=== PATIENT | female | born 1955 | race Caucasian/White ===

== ENCOUNTER 2018-11-16 11:43 | Emergency (ER) | payer MEDICARE ==
[2018-11-16 12:03] LABS: BASOPHILS % (AUTO) 1.3 % (0.0-5.0); EOSINOPHILS % (AUTO) 10.8 % (0.0-8.0); HEMATOCRIT 38.4 % (36-48); LYMPHOCYTES % (AUTO) 32.8 % (21.0-51.0); MEAN CORPUSCULAR HEMOGLOBIN 29.7 pg (27.0-33.0); MEAN CORPUSCULAR HGB CONC 33.7 g/dL (32.0-36.0); MEAN CORPUSCULAR VOLUME 88.1 fL (79-99); MONOCYTES % (AUTO) 6.8 % (3.0-13.0); NEUTROPHILS % (AUTO) 48.3 % (40.0-77.0); PLATELET COUNT (AUTO) 214 K/uL (130-400); RED BLOOD CELL COUNT(AUTO) 4.36 MIL/uL (4.00-5.50); RED CELL DISTRIBUTION WIDTH 13.4 % (11.0-15.5); WHITE BLOOD COUNT (AUTO) 9.6 K/uL (4.8-10.8)
[2018-11-16 12:09] LABS: APPEARANCE,URINE SL CLOUDY (CLEAR); BILIRUBIN,URINE NEGATIVE (NEGATIVE); COLOR,URINE YELLOW (YELLOW); GLUCOSE, URINE (UA) NEGATIVE (NEGATIVE); KETONES,URINE 5 mg/dL (NEGATIVE); LEUKOCYTE ESTERASE ,URINE NEGATIVE (NEGATIVE); NITRATE,URINE NEGATIVE (NEGATIVE); OCCULT BLOOD,URINE NEGATIVE (NEGATIVE); PH,URINE 5.5 (5.0-8.0); PROTEIN,URINE NEGATIVE (NEGATIVE); UROBILINOGEN,URINE 0.2 mg/dL (0.2-1.0)
[2018-11-16 12:10] LABS: POTASSIUM 4.6 mmol/L (3.5-5.1)
[2018-11-16 12:13] LABS: INR 0.9 (0.85-1.15); PARTIAL THROMBOPLASTIN TIME 28.5 SEC (26.3-35.5); PROTHROMBIN TIME 9.5 SEC (9.6-11.6)
[2018-11-16 12:21] LABS: ALBUMIN 3.3 g/dL (3.5-5.0); BILIRUBIN,TOTAL 0.2 mg/dL (0.2-1.0); TOTAL PROTEIN, SERUM 7.2 g/dL (6.0-8.3)
[2018-11-16 12:28] LABS: BACTERIA,URINE Moderate /HPF (None Seen); RBC,URINE None Seen /HPF (0-1); WBC,URINE 0-1 /HPF (0-1)
[2018-11-16] MEDS ORDERED: ASPIRIN 325 MG TABLET ONE (12:39)
[2018-11-16] MEDS ORDERED: METHYLPREDNISOLONE SOD SUCC 125MG/2ML VIAL ONE (12:39)
[2018-11-16] MEDS ORDERED: IPRATROPIUM/ALBUTEROL SULFATE 3 ML SOLUTION IH ONE (12:41)
[2018-11-16 12:54] LABS: B-TYPE NATRIURETIC PEPTIDE 34 pg/mL (0-100)
== END 2018-11-16 15:18 | disposition home or self-care (01) ==
LOC: EDH 11:43
DX: J44.1 Chronic obstructive pulmonary disease with (acute) exacerbation (principal); E11.9 Type 2 diabetes mellitus without complications; I10 Essential (primary) hypertension; E78.00 Pure hypercholesterolemia, unspecified; Z90.710 Acquired absence of both cervix and uterus; Z90.49 Acquired absence of other specified parts of digestive tract; Z88.0 Allergy status to penicillin; Z91.011 Allergy to milk products; Z87.891 Personal history of nicotine dependence
CPT/HCPCS: 36415; 71045; 80053; 81001; 82550; 83880; 84484; 85025; 85610; 85730; 93005; 94640; 96374; 99285; J2930

== ENCOUNTER → 2019-01-05 | Outpatient (CLI) | payer MEDICARE ==
[~2019-01-05] VITALS: Ht 170.2 cm; Wt 122.5 kg
[~2019-01-05] MED LIST: REGADENOSON 0.4 MG/5 ML PF SYG IVP SCH
== END | disposition home or self-care (01) ==
LOC: SHCH 08:12
PROVIDERS: ATTEND Internal Medicine Cardiovascular Disease
DX: I25.89 Other forms of chronic ischemic heart disease (principal); I25.10 Atherosclerotic heart disease of native coronary artery without angina pectoris; I20.9 Angina pectoris, unspecified
CPT/HCPCS: 78452; 93017; 96374; A9500 ×2; J2785

== ENCOUNTER → 2019-01-12 | Outpatient (CLI) | payer MEDICARE | END | disposition home or self-care (01) | LOC: RAH 14:15 | PROVIDERS: ATTEND Family Medicine | DX: S69.82XA Other specified injuries of left wrist, hand and finger(s), initial encounter (principal); S59.802A Other specified injuries of left elbow, initial encounter; M19.032 Primary osteoarthritis, left wrist; M19.042 Primary osteoarthritis, left hand; M79.89 Other specified soft tissue disorders; X58.XXXA Exposure to other specified factors, initial encounter; Y93.89 Activity, other specified; Y92.89 Other specified places as the place of occurrence of the external cause; Y99.8 Other external cause status | CPT/HCPCS: 73080; 73110; 73130 ==

== ENCOUNTER → 2019-01-20 | Outpatient (CLI) | payer MEDICARE | END | disposition home or self-care (01) | LOC: SHCH 14:15 | PROVIDERS: ATTEND Internal Medicine Cardiovascular Disease | DX: I08.0 Rheumatic disorders of both mitral and aortic valves (principal); I31.3 Pericardial effusion (noninflammatory) | CPT/HCPCS: 93306 ==

== ENCOUNTER 2019-03-03 06:07 | Day surgery (SDC) | payer MEDICARE ==
[2019-03-01 15:54] LABS: APPEARANCE,URINE Cloudy (CLEAR); BILIRUBIN,URINE Negative (NEGATIVE); COLOR,URINE Yellow (YELLOW); GLUCOSE, URINE (UA) >=1000 mg/dL (NEGATIVE); KETONES,URINE Negative (NEGATIVE); LEUKOCYTE ESTERASE ,URINE Small (NEGATIVE); NITRATE,URINE Positive (NEGATIVE); OCCULT BLOOD,URINE Negative (NEGATIVE); PH,URINE 5.5 (5.0-8.0); PROTEIN,URINE Negative (NEGATIVE)
[2019-03-01 15:58] LABS: BASOPHILS % (AUTO) 0.9 % (0.0-5.0); EOSINOPHILS % (AUTO) 4.4 % (0.0-8.0); HEMATOCRIT 40.1 % (36-48); LYMPHOCYTES % (AUTO) 31.9 % (21.0-51.0); MEAN CORPUSCULAR HEMOGLOBIN 30.1 pg (27.0-33.0); MEAN CORPUSCULAR HGB CONC 33.5 g/dL (32.0-36.0); MEAN CORPUSCULAR VOLUME 89.9 fL (79-99); MONOCYTES % (AUTO) 6.4 % (3.0-13.0); NEUTROPHILS % (AUTO) 56.4 % (40.0-77.0); PLATELET COUNT (AUTO) 218 K/uL (130-400); RED BLOOD CELL COUNT(AUTO) 4.47 MIL/uL (4.00-5.50); RED CELL DISTRIBUTION WIDTH 13.9 % (11.0-15.5); WHITE BLOOD COUNT (AUTO) 9.7 K/uL (4.8-10.8)
[2019-03-01 16:10] LABS: CREATININE 1.4 mg/dL (0.5-1.5); POTASSIUM 4.6 mmol/L (3.5-5.1)
[2019-03-01 16:30] LABS: INR 0.96 (0.85-1.15); PROTHROMBIN TIME 9.9 SEC (9.6-11.6)
[2019-03-01 17:05] VITALS: BP 139/64
[2019-03-01 17:15] LABS: BACTERIA,URINE Moderate /HPF (None Seen); RBC,URINE 0-1 /HPF (0-1)
[2019-03-01 17:16] LABS: SQUAMOUS EPITHELIAL CELL,UR Moderate /HPF (0-2)
--- NOTE | 2019-03-02 14:17 | NUR ---
RE:URINALYSIS INFORMED LESLYE DUPONT REGARDING POSITIVE URINALYSIS (NITRATES). NO NEW ORDERS RECEIVED, OK TO PROCEED WITH SCHEDULED PROCEDURE.
[2019-03-03] VITALS (21 sets, daily range): BP systolic 95–132; BP diastolic 35–67
[~2019-03-03] VITALS: Ht 172.7 cm; Wt 119.1 kg
[~2019-03-03 06:07] MED LIST changes: +ASPI-1005 PO; +BLAC540C4 PO; +BUDE10.2 IH; +CITA20TA17 PO; +DIAZ10TA4 PO; +ESTR1TAB17 PO; +GLIP5TAB11 PO; +INSU100C6 SQ; +INSU100V12 SQ; +LISI-613 PO; +MAGN400C PO; +METF-446 PO; +NITR0.4T50 SL; -REGADENOSON 0.4 MG/5 ML PF SYG IVP SCH; +SIMV20TA6 PO; +SODIUM CHLORIDE 0.9% 500ML 500 ML IV SCH; +THEO400T3 PO; +TIOT18CA3 IH; +TIZA4TAB5 PO; +TRAM50TA4 PO; +VITAMIN D2 PO
[2019-03-03] MEDS ORDERED: SODIUM CHLORIDE 0.9% 1000ML 1,000 ML IV ONE (06:10)
--- NOTE | 2019-03-03 07:15 | NUR ---
TO DIRECTORY COMPILER PT TRANSFERRED TO DIRECTORY COMPILER VIA BED BY LISY HENDERSON. PT CHRISTA.
[2019-03-03] MEDS ORDERED: NITROGLYCERIN 5 MG/ML 10 ML VIAL IV ONE (07:25)
[2019-03-03] MEDS ORDERED: IOHEXOL 350 MG/ML 100ML INFUS..BTL IV ONE (07:25)
[2019-03-03] MEDS ORDERED: LIDOCAINE HCL 2% 20ML ONE ×2 (07:25→07:41)
[2019-03-03] MEDS ORDERED: IOHEXOL-350 50ML VIAL IV ONE (07:25)
[2019-03-03] MEDS ORDERED: HEPARIN SODIUM 1000UNIT/ML 10ML VIAL ONE (07:25)
[2019-03-03] MEDS ORDERED: MIDAZOLAM HCL 1 MG/ML 2ML VIAL ONE ×2 (07:25→07:43)
[2019-03-03] MEDS ORDERED: ADENOSINE 90MG/30ML VIAL IV ONE ×2 (07:59→08:02)
[2019-03-03] MEDS ORDERED: ATROPINE SULFATE 0.1 MG/ML 10 ML SYG IVP ONE (08:34)
[2019-03-03] MEDS ORDERED: NITROGLYCERIN 4.1 GM SPRAY TL ONE (08:38)
[2019-03-03] MEDS ORDERED: DEXTROSE 50%-WATER 50 ML DISP.SYRIN IV PRN (08:45)
[2019-03-03] MEDS ORDERED: GLUCAGON 1MG KIT 1 MG ML IM PRN (08:45)
[2019-03-03] MEDS ORDERED: INSULIN HUMULIN R 100 UNIT/ML 3ML ONE (11:14)
[2019-03-03] MEDS ORDERED: INSULIN HUMULIN R 100 UNIT/ML 3ML SQ SCH (11:30)
--- NOTE | 2019-03-03 11:39 | NUR ---
DIET PT TOLERATING DIET WELL, FAMILY ASSISTING PT.
--- NOTE | 2019-03-03 14:00 | NUR ---
DISCHARGE PT MEET CRITERIA FOR DISCHARGE, WAITING FOR RIDE HOME. DISCHARGE INSTRUCTIONS GIVEN TO DAUGHTER, ALSO DEMONSTRATED ON HOW TO MONITOR CATH SITE FOR BLEEDING, HEMATOMA. VERBALIZED UNDERSTANDING. CATH SITE REMAINS SOFT, DRESSING DRY AND INTACT, NO OOZING NO HEMATOMA NOTED.
--- NOTE | 2019-03-03 16:00 | NUR ---
DISCHARGE PT'S RIDE HERE. PT DISCHARGED VIA WHEELCHAIR WITH DAUGHTER AND OTHER FAMILY MEMBERS. PT STABLE. CATH SITE TO RIGHT GROIN REMAINS SOFT, DRESSING DRY AND INTACT, NO OOZING NO HEMATOMA NOTED.
== END 2019-03-03 16:00 | disposition home or self-care (01) ==
LOC: DAH 06:07
PROVIDERS: ATTEND Internal Medicine Cardiovascular Disease
DX: I25.118 Atherosclerotic heart disease of native coronary artery with other forms of angina pectoris (principal); R94.39 Abnormal result of other cardiovascular function study; E11.9 Type 2 diabetes mellitus without complications; I10 Essential (primary) hypertension; I25.10 Atherosclerotic heart disease of native coronary artery without angina pectoris; Z88.1 Allergy status to other antibiotic agents; Z88.5 Allergy status to narcotic agent; Z88.8 Allergy status to other drugs, medicaments and biological substances; Z88.0 Allergy status to penicillin; Z79.84 Long term (current) use of oral hypoglycemic drugs; Z79.899 Other long term (current) drug therapy; Z98.890 Other specified postprocedural states; Z87.891 Personal history of nicotine dependence; Z90.710 Acquired absence of both cervix and uterus; Z90.49 Acquired absence of other specified parts of digestive tract; Z95.5 Presence of coronary angioplasty implant and graft; Z79.4 Long term (current) use of insulin; Z79.01 Long term (current) use of anticoagulants; Z72.89 Other problems related to lifestyle; Z82.5 Family history of asthma and other chronic lower respiratory diseases; Z82.49 Family history of ischemic heart disease and other diseases of the circulatory system
CPT/HCPCS: 36415; 71045; 80048; 81001; 82948 ×3; 85025; 85610; 85730; 93005; 93458; 93571; 96360; A4215; A4216; A4221; A4222; A4223 ×3; A4606; A4663; C1769; C1887; C1894; J0153 ×2; J1644 ×2; J1815; J2250 ×2; J3490 ×3; J7030; Q9965; Q9967 ×2; 99156; 99157; J0461

== ENCOUNTER 2019-10-01 23:56 | Observation (INO) | payer MEDICARE ==
[~2019-10-01] VITALS: Ht 170.2 cm; Wt 120.7 kg
[~2019-10-01 23:56] MED LIST changes: +SIMV-43 PO; -SIMV20TA6 PO; -SODIUM CHLORIDE 0.9% 500ML 500 ML IV SCH
[2019-10-02] MEDS ORDERED: NITROGLYCERIN 1GM/1 INCH PACKET TD ONE (00:23)
[2019-10-02 00:27] LABS: BASOPHILS % (AUTO) 0.4 % (0.0-5.0); EOSINOPHILS % (AUTO) 5.7 % (0.0-8.0); LYMPHOCYTES % (AUTO) 44.6 % (21.0-51.0); MEAN CORPUSCULAR HEMOGLOBIN 29.1 pg (27.0-33.0); MEAN CORPUSCULAR HGB CONC 32.7 g/dL (32.0-36.0); MONOCYTES % (AUTO) 6.4 % (3.0-13.0); NEUTROPHILS % (AUTO) 41.1 % (40.0-77.0); PLATELET COUNT (AUTO) 219 K/uL (130-400); RED BLOOD CELL COUNT(AUTO) 3.37 MIL/uL (4.00-5.50); RED CELL DISTRIBUTION WIDTH 13.3 % (11.0-15.5); WHITE BLOOD COUNT (AUTO) 9.9 K/uL (4.8-10.8)
[2019-10-02 00:33] LABS: CREATININE 1.3 mg/dL (0.5-1.5); POTASSIUM 4.4 mmol/L (3.5-5.1)
[2019-10-02 00:36] LABS: INR 0.92 (0.85-1.15); PARTIAL THROMBOPLASTIN TIME 27.3 SEC (26.3-35.5)
[2019-10-02 00:37] LABS: ALBUMIN 3.1 g/dL (3.5-5.0); BILIRUBIN,TOTAL 0.2 mg/dL (0.2-1.0); TOTAL PROTEIN, SERUM 6.7 g/dL (6.0-8.3)
[2019-10-02 00:48] LABS: B-TYPE NATRIURETIC PEPTIDE 42 pg/mL (0-100)
[2019-10-02] MEDS ORDERED: NITROGLYCERIN 0.4 MG SL TAB SL PRN (03:30)
[2019-10-02] MEDS ORDERED: TRAMADOL HCL 50 MG TABLET PO PRN (03:30)
[2019-10-02] MEDS ORDERED: ONDANSETRON HCL 4 MG/2 ML VIAL IV PRN (03:30)
[2019-10-02] MEDS ORDERED: HYDRALAZINE HCL 20 MG/ML VIAL IV PRN (03:30)
[2019-10-02] MEDS ORDERED: ACETAMINOPHEN 325 MG TAB PO PRN ×2 (03:30)
[2019-10-02 03:50] LABS: HEMOGLOBIN A1C 8.3 % (4.0-6.0)
[2019-10-02 03:51] LABS: % IRON SATURATION 12.7 % (22-44)
[2019-10-02 05:00] LABS: CHOLESTEROL 143 mg/dL (<200); HDL CHOLESTEROL 91 mg/dL (35-85); LDL DIRECT 77 mg/dL (0-99); TRIGLYCERIDES 194 mg/dL (30-200)
[2019-10-02] MEDS: FAMOTIDINE/PF 20 MG/2 ML VIAL IV SCH ×2 (09:00→21:35)
[2019-10-02] MEDS: METOPROLOL TARTRATE 50 MG TAB PO SCH (09:00)
[2019-10-02] MEDS: ASPIRIN 81MG TAB.CHEW PO SCH (09:00)
[2019-10-02] MEDS: ENOXAPARIN SODIUM 30 MG/0.3 ML SQ SCH (09:00)
[2019-10-02] MEDS ORDERED: ENOXAPARIN SODIUM 30 MG/0.3 ML SQ ONE (09:01)
[2019-10-02] MEDS ORDERED: ASPIRIN 81MG TAB.CHEW ONE (09:01)
[2019-10-02] MEDS ORDERED: FAMOTIDINE/PF 20 MG/2 ML VIAL IV ONE (09:02)
[2019-10-02] MEDS ORDERED: IPRATROPIUM/ALBUTEROL SULFATE 3 ML SOLUTION IH PRN (10:45)
[2019-10-02] MEDS ORDERED: MAGNESIUM OXIDE 400 MG TABLET PO SCH (10:45)
[2019-10-02] MEDS ORDERED: SUB TO IPRATROPIUM 0.5MG/2.5ML PER P&T IH SCH (10:45)
[2019-10-02] MEDS ORDERED: DIAZEPAM 5 MG TABLET PO PRN (10:45)
[2019-10-02] MEDS: PANTOPRAZOLE SODIUM 40 MG TABLET.DR PO SCH (10:53)
[2019-10-02] MEDS ORDERED: LISINOPRIL 5 MG TABLET ONE (11:18)
[2019-10-02] MEDS ORDERED: ISOSORBIDE MONO 30MG TAB SR PO ONE (11:18)
[2019-10-02] MEDS ORDERED: METOPROLOL TARTRATE 50 MG TAB ONE (11:19)
[2019-10-02] MEDS ORDERED: INSULIN HUMULIN R 100 UNIT/ML 3ML ONE (11:20)
[2019-10-02] MEDS ORDERED: MAGNESIUM OXIDE 400 MG TABLET PO ONE (11:28)
[2019-10-02] MEDS: LISINOPRIL 20 MG TABLET PO SCH (11:30)
[2019-10-02] MEDS: INSULIN HUMULIN R 100 UNIT/ML 3ML SQ SCH ×3 (11:30→21:49)
[2019-10-02] MEDS ORDERED: IPRATROPIUM/ALBUTEROL SULFATE 3 ML SOLUTION IH ONE (11:51)
[2019-10-02] MEDS: IPRATROPIUM/ALBUTEROL SULFATE 3 ML SOLUTION IH SCH ×3 (12:01→23:05)
[2019-10-02 16:00] VITALS: BP 128/75
[2019-10-02] MEDS: ISOSORBIDE MONO 30MG TAB SR PO SCH (16:00)
[2019-10-02] MEDS: METFORMIN HCL 500 MG TABLET PO SCH (17:25)
[2019-10-02] MEDS: BUDESONIDE 0.5 MG/2 ML INH IH SCH (18:16)
[2019-10-02 20:57] VITALS: BP 119/53
[2019-10-02] MEDS ORDERED: ATORVASTATIN CALCIUM 10 MG TABLET PO SCH (21:00)
[2019-10-02] MEDS ORDERED: SUB PER P&T FOR ASTHMA OR COPD RECOMMENDATION IH SCH (21:00)
[2019-10-02] MEDS ORDERED: THEOPHYLLINE ANHYDROUS 100 MG CAP.ER.24H PO SCH (21:00)
[2019-10-02] MEDS ORDERED: INSULIN GLARGINE 100 UNITS/ML 10 ML VIAL SQ SCH ×2 (21:00)
[2019-10-02] MEDS: RANOLAZINE 500 MG TAB.SR.12H PO SCH (21:35)
[2019-10-02 23:59] VITALS: BP 122/60
[2019-10-03 05:39] LABS: BASOPHILS % (AUTO) 0.5 % (0.0-5.0); EOSINOPHILS % (AUTO) 5.4 % (0.0-8.0); HEMATOCRIT 34.6 % (36-48); LYMPHOCYTES % (AUTO) 47.7 % (21.0-51.0); MEAN CORPUSCULAR HEMOGLOBIN 28.9 pg (27.0-33.0); MEAN CORPUSCULAR HGB CONC 32.4 g/dL (32.0-36.0); MEAN CORPUSCULAR VOLUME 89.4 fL (79-99); MONOCYTES % (AUTO) 6.2 % (3.0-13.0); NEUTROPHILS % (AUTO) 38.5 % (40.0-77.0); PLATELET COUNT (AUTO) 236 K/uL (130-400); RED BLOOD CELL COUNT(AUTO) 3.87 MIL/uL (4.00-5.50); RED CELL DISTRIBUTION WIDTH 13.3 % (11.0-15.5); WHITE BLOOD COUNT (AUTO) 9.5 K/uL (4.8-10.8)
[2019-10-03 06:05] VITALS: BP 140/65
[2019-10-03 06:08] LABS: ALBUMIN 3.2 g/dL (3.5-5.0); BILIRUBIN,TOTAL 0.3 mg/dL (0.2-1.0); CREATININE 1.2 mg/dL (0.5-1.5); POTASSIUM 4.3 mmol/L (3.5-5.1); TOTAL PROTEIN, SERUM 6.9 g/dL (6.0-8.3)
[2019-10-03] MEDS: PANTOPRAZOLE SODIUM 40 MG TABLET.DR PO SCH (06:09)
[2019-10-03] MEDS: IPRATROPIUM/ALBUTEROL SULFATE 3 ML SOLUTION IH SCH ×2 (06:10→11:33)
[2019-10-03] MEDS: BUDESONIDE 0.5 MG/2 ML INH IH SCH (06:11)
[2019-10-03] MEDS: INSULIN HUMULIN R 100 UNIT/ML 3ML SQ SCH ×2 (06:14→11:53)
[2019-10-03 08:00] VITALS: BP 129/54
--- NOTE | 2019-10-03 08:00 | NUR ---
AM SHIFT ASSESSMENT. FEELS FINE, STATES NO CHEST PAIN AND NO SOB.
[2019-10-03] MEDS ORDERED: CITALOPRAM 20 MG TABLET PO SCH (09:00)
[2019-10-03] MEDS: RANOLAZINE 500 MG TAB.SR.12H PO SCH (09:18)
[2019-10-03] MEDS: ISOSORBIDE MONO 30MG TAB SR PO SCH (09:18)
[2019-10-03] MEDS: ASPIRIN 81MG TAB.CHEW PO SCH (09:19)
[2019-10-03] MEDS: FAMOTIDINE/PF 20 MG/2 ML VIAL IV SCH (09:19)
[2019-10-03] MEDS: LISINOPRIL 20 MG TABLET PO SCH (09:19)
[2019-10-03] MEDS: ENOXAPARIN SODIUM 30 MG/0.3 ML SQ SCH (09:26)
[2019-10-03] MEDS: METFORMIN HCL 500 MG TABLET PO SCH (09:29)
[2019-10-03] MEDS: METOPROLOL TARTRATE 50 MG TAB PO SCH (09:31)
[2019-10-03 11:38] VITALS: BP 174/150
[2019-10-03] MEDS ORDERED: Isosorbide Mono 30MG Tab Sr PO (11:41)
--- NOTE | 2019-10-03 15:15 | NUR ---
DISCHARGED USING TEACH Back, rx. for imdur given VOICES UNDERSTANDING OF ALL INST. GIVEN AND WILL CALL DRS. LONG FOR APPT. INST. PHONE NUMBERS PROVIDED. SALINE REMOVED, HEART MONITOR REMOVED.NO CHEST PAIN AND NO SOB SINCE ADMISSION.
== END 2019-10-03 15:20 | disposition home or self-care (01) ==
LOC: EDH 23:56 → EDHIP 10-02 03:17 → INTOOBSV 10-02 03:17 → 3AH 10-02 16:10
PROVIDERS: ADMIT Internal Medicine; ATTEND Internal Medicine
DX: R07.89 Other chest pain (principal); N17.9 Acute kidney failure, unspecified; E11.65 Type 2 diabetes mellitus with hyperglycemia; E66.01 Morbid (severe) obesity due to excess calories; E46 Unspecified protein-calorie malnutrition; E78.00 Pure hypercholesterolemia, unspecified; J44.9 Chronic obstructive pulmonary disease, unspecified; Z90.710 Acquired absence of both cervix and uterus; Z88.0 Allergy status to penicillin; Z88.1 Allergy status to other antibiotic agents; Z88.5 Allergy status to narcotic agent; Z90.49 Acquired absence of other specified parts of digestive tract
CPT/HCPCS: 36415 ×2; 71045; 80053 ×2; 80061; 82550; 82948 ×6; 83036; 83540; 83550; 83690; 83880; 84484 ×4; 85025 ×2; 85610; 85730; 93005 ×3; 94640 ×7; 94664; 96372; 96374; 96376; 99285; G0378 ×22; J1650 ×2; J1815 ×4; J3490 ×3